=== PATIENT | female | born 1975 ===

== ENCOUNTER 2019-09-18 12:15 | Inpatient (IN) | payer OTHER ==
[~2019-09-18] VITALS: Ht 162.6 cm; Wt 99.8 kg
[2019-09-23] MEDS ORDERED: GABAPENTIN PO (08:21)
[2019-09-23] MEDS ORDERED: RELAFEN PO (08:21)
[2019-09-23] MEDS ORDERED: ZANAFLEX4 M1 PO (08:22)
[2019-09-23] MEDS ORDERED: ELAVIL PO (08:22)
[2019-09-25] MEDS ORDERED: GABAPENTIN800 M1 PO (09:32)
[2019-09-25] MEDS ORDERED: AMITRIPTYLINE H50 MG PO (09:32)
[2019-09-25] MEDS ORDERED: NABUMETONE750 MG (09:33)
== END 2019-09-27 11:24 | DRG 743 ==
LOC: O/R 09-25 05:02 → OB/GYN 09-25 05:02 → O/R 09-25 07:00 → OB/GYN 09-25 11:19
PROVIDERS: ADMIT Obstetrics & Gynecology; ATTEND Obstetrics & Gynecology
PROC: 0UT70ZZ Resection of Bilateral Fallopian Tubes, Open Approach (ICD-10-PCS; 2019-09-25)
PROC: 0UT20ZZ Resection of Bilateral Ovaries, Open Approach (ICD-10-PCS; 2019-09-25)
PROC: 0UT90ZZ Resection of Uterus, Open Approach (ICD-10-PCS; principal; 2019-09-25 07:00)
DX: N80.0 Endometriosis of uterus (principal); N83.12 Corpus luteum cyst of left ovary; N83.11 Corpus luteum cyst of right ovary; N83.292 Other ovarian cyst, left side; N83.291 Other ovarian cyst, right side

== ENCOUNTER → 2019-09-20 06:27 | Outpatient (CLI) | payer OTHER ==
[~2019-09-20 06:27] MED LIST: AMITRIPTYLINE H50 MG PO; ELAVIL PO; GABAPENTIN PO; GABAPENTIN800 M1 PO; NABUMETONE750 MG; RELAFEN PO; ZANAFLEX4 M1 PO
== END | disposition home or self-care (01) ==
LOC: LAB 06:27
PROVIDERS: ATTEND Obstetrics & Gynecology
DX: E08.22 Diabetes mellitus due to underlying condition with diabetic chronic kidney disease (principal); Z03.818 Encounter for observation for suspected exposure to other biological agents ruled out; N93.8 Other specified abnormal uterine and vaginal bleeding; D25.9 Leiomyoma of uterus, unspecified; Z20.828 Contact with and (suspected) exposure to other viral communicable diseases

== ENCOUNTER 2019-10-04 18:18 | Inpatient (IN) | payer OTHER ==
[~2019-10-04] VITALS: Ht 162.6 cm; Wt 98.0 kg
== END 2019-10-23 12:11 | disposition home or self-care (01) | DRG 373 ==
LOC: ER 18:18 → OB/GYN 10-05 13:11 → SEC-K 10-05 13:11 → OB/GYN 10-05 13:29
PROVIDERS: ADMIT Obstetrics & Gynecology; ATTEND Obstetrics & Gynecology
PROC: BW21ZZZ Computerized Tomography (CT Scan) of Abdomen and Pelvis (ICD-10-PCS; principal; 2019-10-05)
PROC: 0W9G30Z Drainage of Peritoneal Cavity with Drainage Device, Percutaneous Approach (ICD-10-PCS; 2019-10-08)
PROC: BW4GZZZ Ultrasonography of Pelvic Region (ICD-10-PCS; 2019-10-12)
PROC: 0W9G30Z Drainage of Peritoneal Cavity with Drainage Device, Percutaneous Approach (ICD-10-PCS; 2019-10-15)
PROC: 0W9G30Z Drainage of Peritoneal Cavity with Drainage Device, Percutaneous Approach (ICD-10-PCS; 2019-10-18)
DX: K65.1 Peritoneal abscess (principal); N73.8 Other specified female pelvic inflammatory diseases; M79.7 Fibromyalgia; B95.2 Enterococcus as the cause of diseases classified elsewhere